=== PATIENT | male | born 1955 | race African-American/Black ===

== ENCOUNTER 2024-02-15 08:06 | Emergency (ER) | payer MEDICARE, MEDICAID ==
[~2024-02-15] VITALS: Ht 172.7 cm; Wt 81.0 kg
[2024-02-15 08:17] VITALS: O2SAT 96
[2024-02-15] MEDS ORDERED: GUAI-450 MT (10:32)
[2024-02-15] MEDS ORDERED: MENT5LOZ4 MM (10:33)
[2024-02-15 10:47] VITALS: BP 114/75; PULSE 67; RESP 16; TEMP 36.72516; O2SAT 98
== END 2024-02-15 10:53 | disposition home or self-care (01) ==
LOC: ER 09:08
DX: J06.9 Acute upper respiratory infection, unspecified (principal)
CPT/HCPCS: 71045; 99283

== ENCOUNTER 2024-08-17 00:04 | Emergency (ER) | payer BC, MEDICAID ==
[~2024-08-17] VITALS: Ht 172.7 cm; Wt 85.1 kg
[~2024-08-17 00:04] MED LIST: GUAI-450 MT; MENT5LOZ4 MM
[2024-08-17 00:14] VITALS: BP 147/107; PULSE 98; RESP 18; TEMP 36.8; O2SAT 95; O2SAT 98
[2024-08-17 00:33] LABS: HEMATOCRIT. 46.8 % (42.0-52.0); HEMOGLOBIN. 14.6 g/dL (14.0-18.0); MEAN CORPUSCULAR HEMOGLOBIN 22.9 pg (28.0-32.0); MEAN CORPUSCULAR HGB CONC 31.1 g/dL (31.0-37.0); MEAN CORPUSCULAR VOLUME 73.6 fL (80.0-94.0); MEAN PLATELET VOLUME 7.6 fl (7.4-10.4); PLATELET 257 x1000/uL (130-400); RED BLOOD CELL COUNT 6.35 mill/uL (4.7-6.1); RED CELL DISTRIBUTION WIDTH 16.2 % (11.6-14.6)
[2024-08-17 00:34] LABS: DIFFERENTIAL COMMENT 1
[2024-08-17 00:41] LABS: CHLORIDE 104 mEq/L (98-107); POTASSIUM 3.9 mEq/L (3.5-5.1); SODIUM 141 mEq/L (136-145)
[2024-08-17 00:42] LABS: CALCIUM 9.6 mg/dL (8.7-10.4); CARBON DIOXIDE 28 mEq/L (21-32)
[2024-08-17 00:47] LABS: CREATININE 1.1 mg/dL (0.6-1.3); GLUCOSE 144 mg/dL (70-105); UREA NITROGEN BLOOD 11 mg/dL (9-23)
[2024-08-17 00:49] LABS: TROPONIN I HIGH SENSITIVITY 10 ng/L (3.0-53)
[2024-08-17] MEDS ORDERED: BENZ100C86 MT (02:18)
[2024-08-17 07:19] LABS: PLATELET ESTIMATE NORMAL
== END 2024-08-17 02:32 | disposition home or self-care (01) ==
LOC: ER 00:04
DX: J06.9 Acute upper respiratory infection, unspecified (principal); B97.89 Other viral agents as the cause of diseases classified elsewhere; R07.9 Chest pain, unspecified; Z79.899 Other long term (current) drug therapy
CPT/HCPCS: 36415; 71045; 80048; 84484; 85025; 93005; 99285